=== PATIENT | male | born 1975 | race African-American/Black ===

== ENCOUNTER 2016-11-30 09:00 | Inpatient (IN) | payer OTHER ==
--- NOTE | ~2016-11-30 | PA ---
Unit #: [id number] #: [id number] Patient: OLGA CHATMAN [id number] [facility] [address] [place] [address] [id number] MR#: [id number] NAME: OLGA CHATMAN ROOM: [facility] Age: 41 Sex: M Admission Date: 11/30/2016 : 1975 Date of Assessment: Attending Physician: Memo Valdez M.D. Admitting Physician: Memo Valdez M.D. Primary Care Physician: Primary Care Physician No PSYCHIATRIC ASSESSMENT INFORMANTS The patient reliability, fair informant and chart reliability, good. CHIEF COMPLAINT Suicidal ideation. HISTORY OF PRESENT ILLNESS Mr. Olga Abraham is a 41-year-old male, presented with the above-mentioned complaint. The patient has a history of previous treatment inpatient in 2015 and [facility] in 2016. The patient presented with his rehabilitation case coordinator, having thoughts of harming himself. The patient stated that he had a plan to overdose with his psych medication. The patient also reported using crack cocaine and recently evicted. The patient reported that he has been living outside in the last 2 days. The patient is on mental health diversion program. The patient reported using tobacco, age of onset 12; alcohol, age of onset 14; and crack cocaine, age of onset 16. Longest period of sobriety 6 years. Last period of sobriety in 1999. The patient reported history of blackout. No history of any HIV, hepatitis, withdrawal symptom, or IV drug use. Needing inpatient admission at this time for psychiatric stabilization. PAST PSYCHIATRIC HISTORY Remarkable for history of previous treatment [facility], and [facility] 2017. FAMILY HISTORY AND SOCIAL HISTORY The patient has a poor support system. No history of abuse. No legal charges. MEDICAL HISTORY Remarkable for history of injury to ankle. Musculoskeletal; muscle strength and tone, no atrophy or abnormal movement. Gait abnormal. MEDICATION HISTORY The patient is currently on Cogentin, lithium, and Seroquel. ALLERGIES No known drug allergies. SUBSTANCE ABUSE HISTORY Please see above. REVIEW OF SYSTEMS Unit #: [id number] #: [id number] Patient: OLGA CHATMAN HEENT: Eyes, clear. Ears, nose, mouth, and throat; clear. CARDIOVASCULAR: Unremarkable. RESPIRATORY: Unremarkable. GI: Unremarkable. : Unremarkable. SKIN: Unremarkable. LYMPH NODE: Unremarkable. NEUROLOGIC: Unremarkable. ENDOCRINE: Unremarkable. HEMATOLOGIC: Unremarkable. ALLERGIC/IMMUNOLOGIC: Unremarkable. MUSCULOSKELETAL: Muscle strength and tone, no atrophy or abnormal movement. Gait normal. MENTAL STATUS EXAMINATION CONSTITUTIONAL: Measurement of vital signs; temperature 98.6, heart rate 68, respiratory rate 16, blood pressure 112/54, height 5 feet 7 inches, and weight 168 pounds. GENERAL APPEARANCE: The patient dressed casually. The patient did not show any facial deformity. MUSCULOSKELETAL: Please see above. PSYCHIATRIC EXAMINATION Description of speech, regular rate and normal volume. Description of thought process, goal directed. Description of association, intact. Description of abnormal psychotic thinking; the patient guarded, paranoid, mood lability, depression, and suicidal ideation. Description of the patient's judgment: Concerning everyday activity, poor. Social situation, poor. Concerning psychiatric condition, poor. Complete mental status examination; oriented in time, place, and person. Recent and remote memory, fair. Attention span and concentration, fair. Language, able to name object and repeat phrases. Fund of knowledge, aware of current event and passive vocabulary intact. Mood and affect, sad and dysphoric. Insight and judgment, fair to poor. ASSETS AND LIABILITIES Assets, the patient is articulate and able to take care of his ADL. Liability; history of depression, substance abuse, and psychosis. ADMITTING DIAGNOSES Psychiatric: Schizophrenia, chronic paranoid type, F20.0; cocaine use disorder, severe, F14.20; and major depressive disorder, recurrent, severe, F33.2. Secondary diagnosis: Deferred. Medical diagnosis: Injury to ankle. Stressors: Psychosocial stressor. PSYCHIATRIC PLAN AND TREATMENT GOAL AND DISCHARGE PLAN 1. Advised to admit the patient on the inpatient unit. Provide safe, supportive, and structured environment. 2. Ordered labs; CBC, CMP, UA, and UDS. 3. Advised to resume home medication. The patient is on Seroquel 200 mg at bedtime, Cogentin 1 mg at bedtime, lithium carbonate 300 mg b.i.d., fluphenazine decanoate 25 mg q.21 days. Unit #: [id number] #: [id number] Patient: OLGA CHATMAN 4. The patient to attend all the programing on the inpatient unit, group therapy, individual therapy, medication management, and chemical dependency group. TREATMENT GOAL To attain euthymic mood, gain insight into his problem, and learn coping skills. DISCHARGE PLAN Plan to stabilize the patient and consider followup in outpatient program. ESTIMATED LENGTH OF STAY 5 to 7 days. Dictated by... Memo Valdez M.D. SABINA/julien TD: 12/01/2016 17:00 JOB #: [id number] PSYCHIATRIC ASSESSMENT Page 1 of 1 X Memo Valdez MD X PSYCHIATRIC ASSESSMENT
--- NOTE | ~2016-11-30 | PN ---
Unit #: [id number] #: [id number] Patient: OLGA CHATMAN [id number] [facility] [address] [place] [address] [id number] MR#: [id number] NAME: OLGA CHATMAN ROOM: [facility] Age: 41 Sex: M Admission Date: 11/30/2016 : 1975 Attending Physician: Memo Valdez M.D. Admitting Physician: Memo Valdez M.D. Primary Care Physician: Primary Care Physician No [facility] PROGRESS NOTES DATE OF SERVICE 12/02/16 DISCUSSION Olga Chatman is a 41-year-old male seen on 12/02/16. Patient continues to report seeing demons, ghosts, visual hallucinations, paranoia, auditory hallucinations but compliant, cooperative, isolative, guarded. Patient needing prompts to take care of hygiene and grooming. Sad, depressed, passive SI. Vital signs: 98.2, 81, 16, 112/66 COMPLETE REVIEW OF SYSTEMS Unremarkable. MENTAL STATUS EXAMINATION GENERAL APPEARANCE: Patient dressed casually. ATTENTION SPAN AND CONCENTRATION: Poor. Oriented in place and person. MOOD AND AFFECT: Labile. SPEECH: Monotone. THOUGHT PROCESS: [place]. Patient having passive SI, having paranoia hallucination, auditory/visual hallucination, no command hallucination. RECENT AND REMOTE MEMORY: Poor. INSIGHT AND JUDGMENT: Poor. DIAGNOSIS Schizophrenia, chronic, paranoid type ASSESSMENT/PLAN Advised to continue with current combination of fluphenazine injection, next one is due on 12/04/16; Seroquel to continue; Cogentin to continue. Patient is also on lithium and trazodone p.r.n. Patient's lab showed lithium level is 0.4. Patient to continue with the inpatient programming. Dictated by... Ildefonso Castillo/katina Unit #: [id number] #: [id number] Patient: OLGA CHATMAN TD: 12/02/2016 22:51 JOB #: [id number] [facility] PROGRESS NOTES Page 1 of 1 X Memo Valdez MD PROGRESS NOTE
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
--- NOTE | ~2016-11-30 | PN ---
Unit #: [id number] #: [id number] Patient: OLGA CHATMAN [id number] [facility] [address] [place] [address] [id number] I MR#: [id number] NAME: OLGA CHATMAN ROOM: 14 Age: 41 Sex: M Admission Date: 11/30/2016 : 1975 Attending Physician: Memo Valdez M.D. Admitting Physician: Memo Valdez M.D. Primary Care Physician: Primary Care Physician Carrie BROWN NOTES DATE 12/04/2016 DISCUSSION Olga Chatman is a 41-year-old male seen on 12/04/2016. The patient compliant and cooperative, redirectable, able to maintain safe behavior, tolerating medication fairly well. The patient isolative, guarded but denied any thoughts of harming self or others. Complete review of systems unremarkable. MENTAL STATUS EXAMINATION General appearance, the patient dressed casually. Attention span and concentration fair. Oriented to place and person. Mood and affect sad, dysphoric. Speech monotone. Thought process concrete. The patient denied any thoughts of harming self or others but guarded. Recent and remote memory poor. Insight and judgement poor. DIAGNOSES Bipolar mood disorder NOS ASSESSMENT/PLAN Advise to continue with current medication and therapeutic protocol. If needed consider further adjustment of medication. Dictated by... Ildefonso Castillo/diony TD: 12/05/2016 03:37 JOB #: [id number] [facility] PROGRESS NOTES Page 1 of 1 X Memo Valdez MD PROGRESS NOTE
--- NOTE | ~2016-11-30 | PN ---
Unit #: [id number] #: [id number] Patient: OLGA CHATMAN [id number] [facility] [address] [place] [address] [id number] I MR#: [id number] NAME: OLGA CHATMAN ROOM: [facility] Age: 41 Sex: M Admission Date: 11/30/2016 : 1975 Attending Physician: Memo Valdez M.D. Admitting Physician: Memo Valdez M.D. Primary Care Physician: Primary Care Physician Carrie BROWN NOTES DATE OF SERVICE 12/03/2016 DISCUSSION Olga is a 41-year-old male seen on 12/03/2016. The patient interviewed, chart reviewed. Obtained information from nursing staff. The patient tolerating medication fairly well, withdrawn, isolative, guarded, paranoid. The patient still reporting hallucination. The patient isolative. No aggressive behavior. Complete Review of Systems: Unremarkable. MENTAL STATUS EXAMINATION General Appearance: The patient dressed casually. Attention span, concentration: Fair. Oriented in place and person. Mood and affect labile. Speech: Monotone. Thought process: [place]. The patient denied any thoughts of harming self or others. Recent and remote memory: Poor. Insight and judgment: Poor. DIAGNOSIS Schizophrenia, chronic, paranoid type. ASSESSMENT/PLAN Advised to continue with current medication and therapeutic protocol. If needed, consider further adjustment of medication. Dictated by... Ildefonso Castillo/jordan TD: 12/04/2016 09:16 JOB #: [id number] Unit #: [id number] #: [id number] Patient: OLGA CHATMAN PROGRESS NOTES Page 1 of 1 X Memo Valdez MD PROGRESS NOTE
--- NOTE | ~2016-11-30 | HP ---
Unit #: [id number] #: [id number] Patient: OLGA CHATMAN [id number] [place] [address] [id number] I MR#: [id number] NAME: OLGA CHATMAN ROOM: [facility] Age: 41 Sex: M Admission Date: 11/30/2016 : 1975 Attending Physician: Memo Valdez M.D. Admitting Physician: Memo Valdez M.D. Primary Care Physician: Primary Care Physician No HISTORY AND PHYSICAL HISTORY OF PRESENT ILLNESS Olga is a 41-year-old male admitted on 11/30/[address] [place] [address] for detox from alcohol and crack cocaine. He also has suicidal ideation with plan to overdose on his psych medications. PAST MEDICAL HISTORY None. PAST SURGICAL HISTORY Left leg fracture with 2 surgical repairs and another surgical repair planned for December 13. Currently has a hard cast placed. ALLERGIES No known drug allergies. SOCIAL HISTORY He smokes 6 to 8 cigarettes daily. Drinks 64 ounces of alcohol daily and uses crack cocaine. He is currently single and homeless. FAMILY HISTORY Noncontributory. REVIEW OF SYSTEMS CONSTITUTIONAL: No fever or chills. HEENT: Denies any sore throat, ear pain or runny nose. CARDIOVASCULAR: Denies chest pain, irregular heart rhythm or palpitations. CHEST: Denies shortness of breath or cough. No hemoptysis. GASTROINTESTINAL: Denies nausea, vomiting, diarrhea or chronic constipation. ENDOCRINE: Denies history of increased thirst or urination. No recent significant weight loss or gain. GENITOURINARY: Denies dysuria, frequency, or hematuria. SKIN: Denies any rashes. HEMATOLOGIC: Denies history of increased bleeding or bruising. MUSCULOSKELETAL: Denies any hot, swollen joints. No generalized muscle pain. NEUROLOGIC: Denies problems with vision or speech. No frequent, severe headaches. No numbness, tingling or weakness in any extremities. Denies loss of bladder or bowel control. CURRENT MEDICATIONS 1. [place]. 2. Cogentin. Unit #: [id number] #: [id number] Patient: OLGA CHATMAN 3. Seroquel. PHYSICAL EXAMINATION GENERAL: Alert, oriented, in no acute distress. VITAL SIGNS: Blood pressure 120/82, heart rate 99, respirations 16, temperature 97.9. HEIGHT: 5 feet 7. WEIGHT: 168 pounds. SKIN: Warm and dry without rash or lesion. HEENT: Normocephalic. TMs not viewed. Oral and nasal passages clear. Conjunctivae clear. PERRLA. EOMs intact. NECK: Supple without lymphadenopathy or thyromegaly. HEART: Regular rate and rhythm without murmur. LUNGS: Clear. ABDOMEN: Soft, nontender, without masses or hepatosplenomegaly. : Not done. MUSCULOSKELETAL: Left leg and ankle cast. NEUROLOGICAL: Grossly within normal limits. Cranial Nerves: II: Visual rivera are intact. III, IV AND : Extraocular movements are intact. Pupils are equal, round and reactive to light. V: Facial sensation is grossly normal. VII: Facial movements and expression are normal. VIII: Auditory acuity grossly intact. IX, X: Uvula is midline. Phonation is normal. XI: Patient shrugs shoulders and turns head normally. XII: Tongue protrudes in the midline. Sensory and Motor Function: Sensory and motor sensation is grossly normal. Motor: moves all extremities well. Coordination: Gait is normal. Deep Tendon Reflexes: Intact. IMPRESSION 1. Psychiatric admission. 2. Current left leg cast. RECOMMENDATIONS PSYCHIATRIC: Per psychiatrist. MEDICAL: No contraindications to participate in facility's activities. MEDICAL PROGNOSIS Good. MEDICAL CONDITION Stable. Dictated by... Vee Dc/ping TD: 12/01/2016 18:03 JOB #: [id number] Unit #: [id number] #: [id number] Patient: OLGA CHATMAN HISTORY AND PHYSICAL Page 1 of 1 X HERBERTH FONG APRN HISTORY AND PHYSICAL
--- NOTE | ~2016-11-30 | DS ---
Unit #: [id number] #: [id number] Patient: MARI CHATMAN [id number] [facility] [address] [place] [address] [id number] MR#: [id number] NAME: MARI CHATMAN ROOM: [facility] Age: 41 Sex: M Admission Date: 11/30/2016 : 1975 Discharge Date: 12/05/2016 Attending Physician: Memo Valdez M.D. Primary Care Physician: Primary Care Physician No DISCHARGE SUMMARY REASON FOR ADMISSION Suicidal ideation and detox, history of schizophrenia. DIAGNOSTIC STUDIES Laboratory data, remarkable for glucose of 153, albumin 3.3, alkaline phosphatase 141, hemoglobin 11.8. HOSPITAL COURSE The patient was admitted to inpatient unit, on November 30, and discharged on December 05, 2016. The patient was treated on the inpatient unit with expressive therapy, medication management, psychoeducation, psychotherapy, the patient was responsive to treatment, subsequently the patient was discharged to fpc at [facility] and follow up with Melody Emery. DISCHARGE DIAGNOSES [place] I Schizophrenia, chronic paranoid type, F20.0. Cocaine use disorder, severe, F40.20. Major depressive disorder, recurrent, severe, F33.2. [place] II Deferred. [place] III Injury to ankle. Leg fracture with two surgical repairs, and another surgical repair planned for December 13, the patient is currently in hard cast placement. [place] IV Psychosocial stressor. [place] V INSTRUCTIONS TO PATIENT The patient is to follow up in outpatient clinic as well as social worker clinical. DISCHARGE MEDICATIONS 1. [place] carbonate 300 mg twice daily for mood stabilization 2. Cogentin 1 mg at bedtime for EPS symptoms 3. Seroquel 200 mg at bedtime for psychosis 4. Prolixin decanoate shot 25 mg deep intramuscularly every twenty-one days The patient needed antipsychotic and the patient did not do well with one, the patient is not a candidate for Clozaril, the patient was tried on Prolixin, Seroquel, Risperdal in the past, plan to taper off the Seroquel once the patient is stable for at least six months, and follow up through [facility]. Unit #: [id number] #: [id number] Patient: MARI CHATMAN CONDITION AT DISCHARGE The patient is pleasant and cooperative, denied any psychotic symptoms or suicidal ideation. PROGNOSIS Guarded. DIET AND ACTIVITY As tolerated. Dictated by... Ildefonso Castillo/larry TD: 12/06/2016 10:48 JOB #: [id number] DISCHARGE SUMMARY Page 1 of 1 X Memo Valdez MD X DISCHARGE SUMMARY
[2016-12-01 12:19] LABS: BASOPHIL% 0.9 % (0-2.5); EOSINOPHIL# 0.3 X10e3 (0-0.7); EOSINOPHIL% 5.5 % (0.0-7.0); HEMATOCRIT 36.9 % (38.0-50.0); HEMOGLOBIN 11.8 gm/dL (13.0-16.0); LYMPHOCYTE# 1.4 X10e3 (1.0-3.5); LYMPHOCYTE% 28.7 % (17.0-45.0); MEAN CELL VOLUME 85.3 FL (83-96); MEAN CORPUSCULAR HEMOGLOBIN 27.4 PG (28-34); MEAN CORPUSCULAR HGB CONC 32.1 g/dL (30-36); MEAN PLATELET VOLUME 7.3 FL (6.5-11.5); MONOCYTE# 0.3 X10e3 (0-1.0); MONOCYTE% 5.8 % (3.0-12.0); NEUTROPHIL# 2.9 X10e3 (1.5-7.1); NEUTROPHIL% 59.1 % (40-75); PLATELET COUNT 518 X10e3 (140-420); RED BLOOD COUNT 4.33 X10e (3.90-5.60); RED CELL DISTRIBUTION WIDTH 16.7 % (11.0-15.5); WHITE BLOOD COUNT 4.9 X10e3 (4.0-10.5)
[2016-12-01 12:21] LABS: DIFF IND NO
[2016-12-01 12:31] LABS: ALBUMIN SERUM 3.3 g/dL (3.5-5.0); BILIRUBIN,TOTAL 0.6 mg/dL (0.2-2.0); GLOM FILT RATE Estimated 107.1 mL/min (>60); POTASSIUM 4.2 mmol/L (3.5-5.1); PROTEIN TOTAL SERUM 6.3 g/dL (6.0-8.3)
== END 2016-12-05 16:58 | disposition home or self-care (01) | DRG 885 ==
LOC: P1S 11:43
PROVIDERS: Psychiatry & Neurology Psychiatry
DX: F20.0 Paranoid schizophrenia (principal); F33.2 Major depressive disorder, recurrent severe without psychotic features; F14.20 Cocaine dependence, uncomplicated; F17.210 Nicotine dependence, cigarettes, uncomplicated; S82.92XD Unspecified fracture of left lower leg, subsequent encounter for closed fracture with routine healing
CPT/HCPCS: 80053; 80178; 85025